=== PATIENT | female | born 1995 | race Native Hawaiian/Other Pacific Islander ===

== ENCOUNTER 2017-04-17 16:18 | Emergency (ER) | payer OTHER ==
[~2017-04-17] VITALS: Ht 170.2 cm; Wt 52.2 kg
[2017-04-17 17:31] LABS: PLATELET COUNT 234 K/uL (152-353)
[2017-04-17 18:10] VITALS: BP 105/67; TEMP 98.1
== END 2017-04-17 18:10 | disposition home or self-care (01) ==
LOC: ED 16:18
PROVIDERS: Specialist
DX: J40 Bronchitis, not specified as acute or chronic (principal); R58 Hemorrhage, not elsewhere classified
CPT/HCPCS: 36415; 85027; 99283

== ENCOUNTER 2017-11-24 13:50 | Emergency (ER) | payer OTHER ==
[~2017-11-24] VITALS: Ht 167.6 cm; Wt 52.2 kg
[2017-11-24 13:52] VITALS: TEMP 98.1
[2017-11-24 14:19] LABS: PLATELET COUNT 291 K/uL (152-353)
[2017-11-24 14:30] LABS: POTASSIUM 3.8 mmol/L (3.6-5.2)
[2017-11-24 16:00] VITALS: BP 116/78
== END 2017-11-24 16:15 | disposition home or self-care (01) ==
LOC: ED 13:50
PROVIDERS: Emergency Medicine
DX: R55 Syncope and collapse (principal); R42 Dizziness and giddiness
CPT/HCPCS: 36415; 80053; 80307; 81000; 81025; 84439; 84443; 85027; 87077; 87086; 87088; 87185; 87186; 93005; 96360; 99284

== ENCOUNTER 2018-05-13 19:24 | Emergency (ER) | payer OTHER ==
[~2018-05-13] VITALS: Ht 167.6 cm; Wt 49.9 kg
[2018-05-13 20:04] LABS: PLATELET COUNT 249 K/uL (152-353)
[2018-05-13 20:10] LABS: POTASSIUM 3.7 mmol/L (3.6-5.2)
[2018-05-13 22:21] VITALS: BP 106/62; TEMP 98.1
== END 2018-05-13 22:22 | disposition home or self-care (01) ==
LOC: ED 19:24
DX: N30.80 Other cystitis without hematuria (principal); R10.11 Right upper quadrant pain; S39.011A Strain of muscle, fascia and tendon of abdomen, initial encounter; Y93.41 Activity, dancing; Y92.89 Other specified places as the place of occurrence of the external cause
CPT/HCPCS: 36415; 74022; 80053; 81000; 85027; 87077; 87086; 87088; 87186; 99283

== ENCOUNTER 2018-06-18 00:05 | Emergency (ER) | payer OTHER ==
[~2018-06-18] VITALS: Ht 167.6 cm; Wt 49.9 kg
[2018-06-18 01:03] LABS: PLATELET COUNT 255 K/uL (152-353)
[2018-06-18 01:06] LABS: POTASSIUM 3.4 mmol/L (3.6-5.2)
[2018-06-18 02:06] VITALS: BP 106/61; TEMP 98.8
== END 2018-06-18 02:07 | disposition home or self-care (01) ==
LOC: ED 00:05
DX: M54.5 Low back pain (principal); N39.0 Urinary tract infection, site not specified
CPT/HCPCS: 36415; 80053; 80307; 81000; 85027; 99283

== ENCOUNTER 2020-12-26 17:25 | Emergency (ER) | payer OTHER ==
[~2020-12-26] VITALS: Ht 167.6 cm; Wt 61.2 kg
[2020-12-26 17:49] LABS: PLATELET COUNT 234 K/uL (152-353)
[2020-12-26 17:58] LABS: POTASSIUM 3.4 mmol/L (3.6-5.2); SODIUM 140 mmol/L (136-145)
[2020-12-26 18:54] VITALS: BP 119/82; TEMP 97.2
== END 2020-12-26 18:54 | disposition home or self-care (01) ==
LOC: ED 17:25
PROVIDERS: Family Medicine
DX: M79.18 Myalgia, other site (principal); S70.12XA Contusion of left thigh, initial encounter
CPT/HCPCS: 80053; 82550; 84484; 85027; 93005; 99283

== ENCOUNTER 2021-01-13 10:26 | Emergency (ER) | payer OTHER ==
[~2021-01-13] VITALS: Ht 165.1 cm; Wt 63.5 kg
[2021-01-13 10:32] VITALS: BP 115/77; TEMP 98
[2021-01-13 11:13] LABS: PLATELET COUNT 254 K/uL (152-353)
[2021-01-13 11:29] LABS: POTASSIUM 4.4 mmol/L (3.6-5.2)
[2021-01-13 11:32] LABS: PARTIAL THROMBOPLASTIN TIME 24.1 SECONDS (24.5-33.6)
== END 2021-01-13 14:04 | disposition home or self-care (01) ==
LOC: ED 10:26
PROVIDERS: Hospitalist
DX: N39.0 Urinary tract infection, site not specified (principal)
CPT/HCPCS: 36415; 80053; 81000; 81025; 83690; 85027; 85610; 85730; 87077; 87086; 87088; 87186; 96360; 96365; 96366; 96375; 99284; J1885; J1956; J2405